=== PATIENT | male | born 2000 | race Caucasian/White ===

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

== ENCOUNTER 2020-05-04 12:51 | Emergency (ER) | payer OTHER ==
[~2020-05-04] VITALS: Ht 162.6 cm; Wt 54.4 kg
[2020-05-04] MEDS ORDERED: PEPCID20 MG PO (21:34)
[2020-05-04] MEDS ORDERED: KETO10TA2 PO (21:34)
[2020-05-04] MEDS ORDERED: INTESTINEX680 M1 PO (21:41)
== END 2020-05-04 22:17 | disposition home or self-care (01) ==
LOC: EMR PED 12:51
DX: K52.9 Noninfective gastroenteritis and colitis, unspecified (principal); R10.31 Right lower quadrant pain